=== PATIENT | female | born 1980 | race American Indian/Alaskan Native ===

== ENCOUNTER 2016-05-22 10:46 | Emergency (ER) | payer SELFPAY ==
[2016-05-22] MEDS ORDERED: CATAPRES PO ONE (10:59)
--- NOTE | 2016-05-22 11:06 | Emergency Department Report ---
Chief Complaint: Eye Problems Stated Complaint: POSS PINK EYE Time Seen by Provider: 05/22/16 10:59 - HPI History of Present Illness: 35-year-old female presents today with left eye redness and pain 2 days. Denies injury or trauma. Also complaining of cough and cold symptoms 1 week. 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 Positive for history of hypertension and has been out of her Percocet medication 2 months. Patient is taking amlodipine and 25 mg once a day. Denies headache, visual changes, chest pain, shortness of breath, dizziness, confusion, nausea, vomiting, abdominal pain. - ROS Review of Systems: Per HPI - Exam Vital Signs: Vital Signs 05/22/16 10:51 Temperature 98.3 F Pulse Rate 107 H Respiratory 22 Rate Blood Pressure 195/123 O2 Sat by Pulse 97 Oximetry Physical Exam: General: 35-year-old female in no acute distress. Well-developed, well- nourished. Eyes: Extraocular motions intact. PERRL. Conjunctival injection noted of left eye. Positive for drainage. CV: Slightly tachycardic. Regular rhythm. Lungs: Clear to auscultation bilaterally. MSE screening note: Focused history and physical exam performed. Due to findings the following was ordered: Consulted with Ned, would like patient to be sent to main ED. ED Disposition for MSE Condition: Stable
[2016-05-22] MEDS ORDERED: TETRACAINE 0.5% OS STA (13:01)
[2016-05-22] MEDS ORDERED: FUL-GLO OP ONE (13:01)
--- NOTE | 2016-05-22 13:45 | Emergency Department Report ---
ED General Adult HPI - General Chief complaint: Eye Problems Stated complaint: POSS PINK EYE Time Seen by Provider: 05/22/16 10:59 Source: patient, RN notes reviewed Mode of arrival: Ambulatory Limitations: No Limitations - History of Present Illness Initial comments: This is a 35-year-old female. She is previously unknown to me. She has a past medical history of hypertension, typically supposed to be on amlodipine 25 mg daily, has been out of her blood pressure medication for 2 months. Also reports a corneal transplant in 2008, secondary to "eye infection." Patient has a primary care doctor by the name of Dr. Joyce. The patient presents to the ER complaining of eye redness, eye discomfort, eye discharge since yesterday. Positive cough, runny nose, sore throat. Positive sick contacts at home with multiple similar symptoms. No severe headache, no neck pain, no chest pain, no abdominal pain, no shortness of breath, no extremity weakness. No extremity numbness. The patient reports that she is not . -: Gradual, days(s) Location: eyes (left eye) Severity scale (0 -10): 0 Quality: aching Consistency: constant Improves with: medication Worsens with: none Associated Symptoms: cough - Related Data Home Medications Medication Instructions Recorded Confirmed Last Taken amLODIPine [Norvasc] 25 mg PO DAILY 05/22/16 05/22/16 Unknown Previous Rx's Medication Instructions Recorded Last Taken Type Bacitracin [Bacitracin Ophth] 3.5 gm OS Q4HR #1 oint...g. 05/22/16 Unknown Rx amLODIPine [Norvasc] 25 mg PO DAILY #90 tab 05/22/16 Unknown Rx Allergies Allergy/AdvReac Type Severity Reaction Status Date / Time No Known Allergies Allergy Unverified 05/22/16 10:49 ED Review of Systems ROS: Stated complaint: POSS PINK EYE Other details as noted in HPI Constitutional: denies: fever Eyes: eye discharge. denies: vision change ENT: congestion. denies: epistaxis Respiratory: cough Cardiovascular: denies: chest pain, palpitations Gastrointestinal: denies: abdominal pain, nausea, diarrhea Genitourinary: denies: urgency, dysuria, discharge Musculoskeletal: denies: back pain, joint swelling, arthralgia Skin: denies: rash, lesions Neurological: denies: headache, weakness, paresthesias Psychiatric: denies: anxiety, depression ED Past Medical Hx - Past Medical History Previous Medical History?: Yes Hx Hypertension: Yes - Surgical History Past Surgical History?: Yes Additional Surgical History: Hx. of corneal transplant left eye, hx fibroidectomy - Social History Smoking Status: Current Every Day Smoker Substance Use Type: Alcohol, Non Opiate Pain, Prescribed - Medications Home Medications: Home Medications Medication Instructions Recorded Confirmed Last Taken Type Bacitracin [Bacitracin Ophth] 3.5 gm OS Q4HR #1 oint...g. 05/22/16 Unknown Rx amLODIPine [Norvasc] 25 mg PO DAILY 05/22/16 05/22/16 Unknown History amLODIPine [Norvasc] 25 mg PO DAILY #90 tab 05/22/16 Unknown Rx ED Physical Exam - General Limitations: No Limitations General appearance: alert, in no apparent distress - Head Head exam: Present: atraumatic, normocephalic - Eye Eye exam: Present: PERRL, EOMI, conjunctival injection (there is left conjunctival injection. There is no direct consensual or photophobia. Minimal discharge noted from the left eye. There is no pain with extraocular movement.) , other (visual acuity is intact to finger counting, color perception, reading a close distance.) - ENT ENT exam: Present: normal exam, normal orophraynx, mucous membranes moist, normal external ear exam, other ( nasal congestion is noted bilaterally) - Neck Neck exam: Present: normal inspection, full ROM. Absent: tenderness, meningismus - Respiratory Respiratory exam: Present: normal lung sounds bilaterally. Absent: respiratory distress, wheezes, rales, rhonchi, stridor, chest wall tenderness, accessory muscle use - Cardiovascular Cardiovascular Exam: Present: regular rate, normal rhythm, normal heart sounds. Absent: bradycardia, tachycardia, irregular rhythm, systolic murmur, diastolic murmur, rubs, gallop - GI/Abdominal GI/Abdominal exam: Present: soft, normal bowel sounds. Absent: distended, tenderness, guarding, rebound, rigid, pulsatile mass - Extremities Exam Extremities exam: Present: normal inspection, full ROM, normal capillary refill. Absent: tenderness, pedal edema, joint swelling, calf tenderness - Back Exam Back exam: Present: normal inspection, full ROM. Absent: tenderness, CVA tenderness (R), CVA tenderness (L), muscle spasm, paraspinal tenderness, vertebral tenderness - Neurological Exam Neurological exam: Present: alert, oriented X3, normal gait, other (Extraocular movements intact. Tongue midline. No facial droop. Facial sensation intact to light touch in the V1, V2, V3 distribution bilaterally. 5 and 5 strength in 4 extremities.. Sensation is intact to light touch in 4 extremities.). Absent : motor sensory deficit - Psychiatric Psychiatric exam: Present: normal affect, normal mood - Skin Skin exam: Present: warm, dry, intact, normal color. Absent: rash ED Course Vital Signs 05/22/16 05/22/16 05/22/16 10:51 11:15 12:09 Temperature 98.3 F 98.6 F Pulse Rate 107 H 107 H 80 Respiratory 22 18 Rate Blood Pressure 195/123 195/123 Blood Pressure 204/109 [Left] O2 Sat by Pulse 97 98 Oximetry 05/22/16 12:10 Temperature Pulse Rate Respiratory 18 Rate Blood Pressure Blood Pressure [Left] O2 Sat by Pulse 98 Oximetry - Reevaluation(s) Reevaluation #1: 05/22/16 13:43 Differential diagnosis: Conjunctivitis, asymptomatic hypertension, medication noncompliance, history of corneal transplant Assessment and plan: 35-year-old female with probable conjunctivitis, with incidental hypertension, most likely secondary to medication noncompliance. From a hypertension perspective, the patient is asymptomatic. She reports that she is not . As per the [employer] clinical policy on asymptomatic hypertension: Initiating treatment for asymptomatic hypertension in the ED is not necessary when patients have follow-up; (2) Rapidly lowering blood pressure in asymptomatic patients in the ED is unnecessary and may be harmful in some patients; (3) When ED treatment for asymptomatic hypertension is initiated, blood pressure management should attempt to gradually lower blood pressure and should not be expected to be normalized during the initial ED visit. The patient will be restarted on her blood pressure medication. The importance of medication compliance was discussed with the patient. She verbalized understanding. Patient will also be started on bacitracin ophthalmic, and instructed to follow up with outpatient ophthalmology. Her most recent blood pressure is 182/98. She will be discharged at this time. Return precautions are extensively reviewed. On saxena lamp/fluorescein examination, there is a negative Darrian sign, there is negative fluorescein uptake. ED Medical Decision Making - Lab Data Vital Signs - 24 hr 05/22/16 05/22/16 05/22/16 10:51 11:15 12:09 Temperature 98.3 F 98.6 F Pulse Rate 107 H 107 H 80 Respiratory 22 18 Rate Blood Pressure 195/123 195/123 Blood Pressure 204/109 [Left] O2 Sat by Pulse 97 98 Oximetry 05/22/16 12:10 Temperature Pulse Rate Respiratory 18 Rate Blood Pressure Blood Pressure [Left] O2 Sat by Pulse 98 Oximetry Critical care attestation.: If time is entered above; I have spent that time in minutes in the direct care of this critically ill patient, excluding procedure time. ED Disposition Clinical Impression: Elevated blood pressure, Redness of eye, left Disposition: DISCHARGED TO HOME OR SELFCARE Is pt being admited?: No Does the pt Need Aspirin: No Condition: Stable Instructions: Hypertension (ED), Conjunctivitis (ED) Additional Instructions: Take the antibiotic ophthalmic ointment as directed. Take the blood pressure medication as directed. Follow-up with your primary care doctor within the next week for further evaluation and management of elevated blood pressure. It is very important to closely follow up with your primary care physician for your elevated blood pressure. Long-term complications of hypertension/elevated blood pressure include stroke, heart attack, disability, , paralysis, permanent loss of quality of life. In addition, I recommend that you follow-up with an utility maintenance worker for the eye redness within the next 2-[address] Abel is a local ophthalmology specialist. Please return to the ER right away with fevers or chills, chest pain or shortness of breath, inability to tolerate liquid feeds, loss of vision in the affected eye. Referrals: PRIMARY CARE, [Primary Care Provider] - 3-5 Days TERRI ABEL MD [Staff Physician] - 3-5 Days ALEXANDRE ODEN MD [Staff Physician] - 3-5 Days
[2016-05-22 14:05] VITALS: BP 169/98
== END 2016-05-22 14:03 | disposition home or self-care (01) ==
LOC: ED 10:46
DX: H57.8 Other specified disorders of eye and adnexa (principal); I10 Essential (primary) hypertension; L53.8 Other specified erythematous conditions; F17.200 Nicotine dependence, unspecified, uncomplicated; Z94.7 Corneal transplant status
CPT/HCPCS: 99283

== ENCOUNTER 2016-08-10 18:24 | Emergency (ER) | payer OTHER ==
[2016-08-10 21:11] LABS: Bilirubin,Urine NEG (Negative); Blood,Urine NEG (Negative); Ketones,Urine 20 mg/dL (Negative); Leukocyte Esterase,Urine SM (Negative); Mucus,Urine 3+ /HPF; Nitrite,Urine NEG (Negative); Protein,Urine <15 mg/dL mg/dL (Negative); Urobilinogen,Urine < 2.0 mg/dL (<2.0)
[2016-08-10] MEDS ORDERED: MOTRIN PO ONE (21:38)
--- NOTE | 2016-08-10 22:17 | Emergency Department Report ---
ED Back Pain/Injury HPI - General Chief Complaint: Back Pain/Injury Stated Complaint: FALL/BODY [PAIN Time Seen by Provider: 08/10/16 21:23 Source: patient Mode of arrival: Ambulatory Limitations: No Limitations - History of Present Illness Initial Comments: PT states she fell today while at work. PT states she was going to sit down on an adjustable stool (stool between2-3 feet in height) and she did not know the stool had wheels on it. PT states she fell backwards. pt denies loc or head injury. PT states she took her bp medication this morning. MD Complaint: back injury, fall -: Sudden, hour(s) Time: 14:00 Similar Symptoms Previously: No Place: work Severity scale (0 -10): 10 Quality: sharp Consistency: constant Improves With: none Worsens With: movement Associated Symptoms: denies: weakness, chest pain, numbness, difficulty urinating, incontinence, fever/chills, abdominal pain, nausea/vomiting, seizure , shortness of breath, syncope - Related Data Home Medications Medication Instructions Recorded Confirmed Last Taken amLODIPine [Norvasc] 25 mg PO DAILY 05/22/16 05/22/16 Unknown Previous Rx's Medication Instructions Recorded Last Taken Type Bacitracin [Bacitracin Ophth] 3.5 gm OS Q4HR #1 oint...g. 05/22/16 Unknown Rx amLODIPine [Norvasc] 25 mg PO DAILY #90 tab 05/22/16 Unknown Rx Ibuprofen [Motrin] 600 mg PO Q8H PRN #15 tablet 08/10/16 Unknown Rx amLODIPine [Norvasc] 10 mg PO DAILY #30 tab 08/10/16 Unknown Rx methOCARBAMOL [Robaxin TAB] 500 mg PO Q6H PRN #15 tablet 08/10/16 Unknown Rx traMADol [Ultram] 50 mg PO Q6HR PRN #12 tablet 08/10/16 Unknown Rx Allergies Allergy/AdvReac Type Severity Reaction Status Date / Time No Known Allergies Allergy Unverified 05/22/16 10:49 ED Review of Systems ROS: Stated complaint: FALL/BODY [PAIN Other details as noted in HPI Comment: All other systems reviewed and negative Constitutional: denies: fever Respiratory: denies: cough, shortness of breath Cardiovascular: denies: chest pain, syncope Gastrointestinal: denies: abdominal pain, nausea, vomiting Genitourinary: denies: dysuria, discharge Musculoskeletal: back pain, other (neck pain ) Neurological: denies: headache ED Past Medical Hx - Past Medical History Previous Medical History?: No Hx Hypertension: Yes Hx CVA: No Hx Heart Attack/AMI: No Hx Congestive Heart Failure: No Hx Diabetes: No Hx Deep Vein Thrombosis: No Hx Pulmonary Embolism: No Hx GERD: No Hx Liver Disease: No Hx Renal Disease: No Hx of Cancer: No Hx Sickle Cell Disease: No Hx Arthritis: No Hx Headaches / Migraines: No Hx Seizures: No Hx Kidney Stones: No Hx Psychiatric Treatment: No Hx Asthma: No Hx COPD: No Hx Tuberculosis: No Hx Dementia: No Hx HIV: No - Surgical History Past Surgical History?: Yes Hx Coronary Stent: No Hx Open Heart Surgery: No Hx Pacemaker: No Hx Internal Defibrillator: No Hx Cholecystectomy: No Hx Appendectomy: No Hx Breast Surgery: No Additional Surgical History: Hx. of corneal transplant left eye, hx fibroidectomy - Social History Smoking Status: Current Some Day Smoker Substance Use Type: None - Medications Home Medications: Home Medications Medication Instructions Recorded Confirmed Last Taken Type Bacitracin [Bacitracin Ophth] 3.5 gm OS Q4HR #1 oint...g. 05/22/16 Unknown Rx amLODIPine [Norvasc] 25 mg PO DAILY 05/22/16 05/22/16 Unknown History amLODIPine [Norvasc] 25 mg PO DAILY #90 tab 05/22/16 Unknown Rx Ibuprofen [Motrin] 600 mg PO Q8H PRN #15 tablet 08/10/16 Unknown Rx amLODIPine [Norvasc] 10 mg PO DAILY #30 tab 08/10/16 Unknown Rx methOCARBAMOL [Robaxin TAB] 500 mg PO Q6H PRN #15 tablet 08/10/16 Unknown Rx traMADol [Ultram] 50 mg PO Q6HR PRN #12 tablet 08/10/16 Unknown Rx ED Physical Exam - General Limitations: No Limitations General appearance: alert, in no apparent distress, obese - Head Head exam: Present: atraumatic, normocephalic, normal inspection - Eye Eye exam: Present: normal appearance, PERRL, EOMI. Absent: conjunctival injection - ENT ENT exam: Present: normal exam, normal external ear exam - Neck Neck exam: Present: normal inspection, tenderness, other (post midline C-spine tenderness. R trapizious tenderness ) - Respiratory Respiratory exam: Present: normal lung sounds bilaterally. Absent: respiratory distress, chest wall tenderness - Cardiovascular Cardiovascular Exam: Present: regular rate, normal rhythm, normal heart sounds - GI/Abdominal GI/Abdominal exam: Present: soft. Absent: tenderness - Extremities Exam Extremities exam: Present: normal inspection, full ROM, normal capillary refill. Absent: tenderness - Back Exam Back exam: Present: normal inspection, full ROM, tenderness, muscle spasm, paraspinal tenderness (R side ). Absent: CVA tenderness (R), CVA tenderness (L) , vertebral tenderness - Neurological Exam Neurological exam: Present: alert, oriented X3 - Psychiatric Psychiatric exam: Present: normal affect, normal mood - Skin Skin exam: Present: warm, dry, intact ED Course Vital Signs 08/10/16 08/10/16 19:01 22:49 Temperature 98.6 F Pulse Rate 88 75 Respiratory 16 20 Rate Blood Pressure 198/122 Blood Pressure 198/122 194/107 [Left] O2 Sat by Pulse 100 99 Oximetry DBP decreases sp analgesic given in the ED. PT requesting refill of bp medication. - Reevaluation(s) Reevaluation #1: 08/10/16 22:51 PT's pain treated with Motrin. PT aware of XR results. PT aware she will need to follow up with worker's comp. PT aware she will need to take her bp daily, pt states she is almost out of her bp medication - Pulse Oximetry Interpretation Digit-Finger Initial Pulse Oximetry Readin Actions Taken: none ED Medical Decision Making - Lab Data Laboratory Results - last 72 hr 08/10/16 20:15 Urine Color Yellow Urine Turbidity Cloudy Urine pH 5.0 Ur Specific [place] 1.024 Urine Protein <15 mg/dl Urine Glucose (UA) Neg Urine Ketones 20 Urine Blood Neg Urine Nitrite Neg Ur Reducing Substances Not Reportable Urine Bilirubin Neg Urine Ictotest Not Reportable Urine Urobilinogen < 2.0 Ur Leukocyte Esterase Sm Urine WBC (Auto) 18.0 H Urine RBC (Auto) 9.0 U Epithel Cells (Auto) 59.0 H Urine Mucus 3+ Urine HCG, Qual Negative UA contaminated. PT denies URI symptoms. - Radiology Data Radiology results: report reviewed XR C-spine - muscle spasm, no fx XR L spine - nap - Differential Diagnosis fracture, strain, contusion Critical Care Time: No Critical care attestation.: If time is entered above; I have spent that time in minutes in the direct care of this critically ill patient, excluding procedure time. ED Disposition Clinical Impression: Fall Qualifiers: Encounter type: initial encounter Qualified Code(s): W19.XXXA - Unspecified fall, initial encounter Cervical strain, acute Qualifiers: Encounter type: initial encounter Qualified Code(s): S16.1XXA - Strain of muscle, fascia and tendon at neck level, initial encounter Acute low back pain Qualifiers: Back pain laterality: right Sciatica presence: without sciatica Qualified Code( s): M54.5 - Low back pain Disposition: DISCHARGED TO HOME OR SELFCARE Is pt being admited?: No Does the pt Need Aspirin: No Condition: Stable Instructions: Cervical Spine Strain (ED), Muscle Strain (ED), Acute Low Back Pain (ED) Additional Instructions: No driving or ETOH after Robaxin or Ultram follow up with Worker's comp Prescriptions: amLODIPine [Norvasc] 10 mg PO DAILY #30 tab Ibuprofen [Motrin] 600 mg PO Q8H PRN #15 tablet PRN Reason: Pain methOCARBAMOL [Robaxin TAB] 500 mg PO Q6H PRN #15 tablet PRN Reason: Muscle Spasm traMADol [Ultram] 50 mg PO Q6HR PRN #12 tablet PRN Reason: Pain Referrals: PRIMARY CARE, [Primary Care Provider] - 3-5 Days BESSIE HUA MD [Staff Physician] - 3-5 Days Forms: Work/School Release Form(ED) Time of Disposition: 22:55
--- NOTE | 2016-08-10 22:31 | XRay Report ---
FINAL REPORT EXAM: XR SPINE LUMBOSACRAL 2-3V HISTORY: injury; lower back pain TECHNIQUE: AP and lateral views lumbar spine PRIORS: None. FINDINGS: Lumbar lordosis is intact. Vertebral body heights and intervertebral disc spaces are preserved. Transitional lumbosacral anatomy is present with left-sided pseudoarthrosis at the level designated S1-S2. No listhesis, spondylolysis or other fracture. IMPRESSION: No acute finding. Transitional lumbosacral anatomy is present with pseudoarthrosis on the left, as detailed above.
--- NOTE | 2016-08-10 22:33 | XRay Report ---
FINAL REPORT EXAM: XR SPINE CERVICAL 2-3V HISTORY: injury; upper back pain COMPARISONS: None FINDINGS: 3 views of the cervical spine There is straightening of the cervical spine. Vertebral body heights and intervertebral disc spaces are preserved. No fractures. Prevertebral soft tissues are within normal limits. Incomplete evaluation of the lung apices is unremarkable. IMPRESSION: Straightening of the cervical spine, which may be secondary to muscle spasm or be positional in nature. No fracture.
[2016-08-10 22:50] VITALS: BP 194/107
== END 2016-08-10 23:11 | disposition home or self-care (01) ==
LOC: ED 18:24
DX: S16.1XXA Strain of muscle, fascia and tendon at neck level, initial encounter (principal); M54.5 Low back pain; I10 Essential (primary) hypertension; F17.200 Nicotine dependence, unspecified, uncomplicated; W18.30XA Fall on same level, unspecified, initial encounter; Y93.89 Activity, other specified; Y99.8 Other external cause status; Y92.89 Other specified places as the place of occurrence of the external cause
CPT/HCPCS: 72040; 72100; 81001; 81025